=== PATIENT | male | born 1935 | race Hispanic/Latino ===

== ENCOUNTER 2021-02-02 11:24 | Emergency (ER) | payer BC, MEDICARE, OTHER ==
[~2021-02-02 11:24] MED LIST: LISI10TA24 PO; METO25TA6 PO
[2021-02-02] MEDS ORDERED: CYCLOBENZAPRINE HCL 10 MG TABLET ONE (12:39)
[2021-02-02] MEDS ORDERED: TETANUS IMMUNE GLOBULIN 250 UNIT SYRINGE IM ONE (12:40)
[2021-02-02] MEDS ORDERED: HYDROCODONE/ACETAMINOPHEN 10/325 MG TAB ONE (12:40)
[2021-02-02 12:45] LABS: BASOPHILS % (AUTO) 0.6 % (0.0-5.0); HEMATOCRIT 45.9 % (42-54); LYMPHOCYTES % (AUTO) 15.2 % (21.0-51.0); MEAN CORPUSCULAR HEMOGLOBIN 26.2 pg (27.0-33.0); MEAN CORPUSCULAR HGB CONC 32.7 g/dL (32.0-36.0); MEAN CORPUSCULAR VOLUME 80.2 fL (79-99); MONOCYTES % (AUTO) 8.1 % (3.0-13.0); NEUTROPHILS % (AUTO) 73.2 % (40.0-77.0); PLATELET COUNT (AUTO) 202 K/uL (130-400); RED BLOOD CELL COUNT(AUTO) 5.72 MIL/uL (4.50-6.20); RED CELL DISTRIBUTION WIDTH 14.2 % (11.0-15.5)
[2021-02-02 12:54] LABS: CREATININE 0.9 mg/dL (0.5-1.5); POTASSIUM 4.5 mmol/L (3.5-5.1)
[2021-02-02 12:55] LABS: INR 0.99 (0.85-1.15); PROTHROMBIN TIME 10.8 SEC (9.6-11.6)
[2021-02-02 12:57] LABS: PARTIAL THROMBOPLASTIN TIME 26.2 SEC (26.3-35.5)
[2021-02-02 12:58] LABS: ALBUMIN 3.3 g/dL (3.5-5.0); TOTAL PROTEIN, SERUM 6.4 g/dL (6.0-8.3)
[2021-02-02 13:04] LABS: B-TYPE NATRIURETIC PEPTIDE 70 pg/mL (0-100)
[2021-02-02 13:10] LABS: APPEARANCE,URINE CLEAR (CLEAR); BILIRUBIN,URINE NEGATIVE (NEGATIVE); COLOR,URINE YELLOW (YELLOW); GLUCOSE, URINE (UA) NEGATIVE (NEGATIVE); KETONES,URINE NEGATIVE (NEGATIVE); LEUKOCYTE ESTERASE ,URINE NEGATIVE (NEGATIVE); NITRATE,URINE NEGATIVE (NEGATIVE); OCCULT BLOOD,URINE NEGATIVE (NEGATIVE); PROTEIN,URINE NEGATIVE (NEGATIVE)
== END 2021-02-02 15:13 | disposition home or self-care (01) ==
LOC: EDH 11:24
DX: S30.0XXA Contusion of lower back and pelvis, initial encounter (principal); S50.01XA Contusion of right elbow, initial encounter; Z20.822 Contact with and (suspected) exposure to COVID-19; I10 Essential (primary) hypertension; W18.39XA Other fall on same level, initial encounter; Y93.01 Activity, walking, marching and hiking; Y92.89 Other specified places as the place of occurrence of the external cause; Y99.8 Other external cause status
CPT/HCPCS: 36415; 70450; 71045; 72125; 72131; 73070; 80053; 81003; 82550; 83880; 84484; 85025; 85610; 85730; 87426; 90471; 93005; 99284; J1670

== ENCOUNTER 2022-04-06 18:35 | Emergency (ER) | payer OTHER ==
[~2022-04-06] VITALS: Ht 167.6 cm; Wt 77.1 kg
[2022-04-06 18:38] VITALS: BP 146/64
[2022-04-06] MEDS ORDERED: CETI10TA57 PO (19:46)
[2022-04-06] MEDS ORDERED: HYDR28.32 TP (19:46)
[2022-04-07] MEDS ORDERED: CETIRIZINE HCL 5 MG TABLET PO SCH (09:00)
== END 2022-04-06 20:16 | disposition home or self-care (01) ==
LOC: EDH 18:35
DX: L23.9 Allergic contact dermatitis, unspecified cause (principal); I10 Essential (primary) hypertension; Z79.899 Other long term (current) drug therapy

== ENCOUNTER 2023-05-13 07:51 | Emergency (ER) | payer OTHER ==
[~2023-05-13] VITALS: Ht 170.2 cm; Wt 78.9 kg
[~2023-05-13 07:51] MED LIST changes: +CETI10TA57 PO; +HYDR28.32 TP
[2023-05-13 08:17] LABS: HEMATOCRIT 48.1 % (42-54); MEAN CORPUSCULAR HGB CONC 31.6 g/dL (32.0-36.0); MEAN CORPUSCULAR VOLUME 82.4 fL (79-99); RED BLOOD CELL COUNT(AUTO) 5.84 MIL/uL (4.50-6.20); RED CELL DISTRIBUTION WIDTH 14.6 % (11.0-15.5); WHITE BLOOD COUNT (AUTO) 6.9 K/uL (4.8-10.8)
[2023-05-13 08:30] LABS: SARS-CoV-2, RNA, NAAT NEGATIVE SARS CoV-2 (NEGATIVE)
[2023-05-13 08:34] LABS: INFLUENZA TYPE A Negative For Type A (NEGATIVE); INFLUENZA TYPE B Negative For Type B (NEGATIVE)
[2023-05-13 08:37] LABS: ALBUMIN 3.5 g/dL (3.5-5.0); BILIRUBIN,TOTAL 1.3 mg/dL (0.2-1.0); POTASSIUM 4.1 mmol/L (3.5-5.1); TOTAL PROTEIN, SERUM 6.8 g/dL (6.0-8.3)
[2023-05-13] MEDS ORDERED: BACITRACIN 1 EACH PACKET TP ONE (09:30)
[2023-05-13 12:09] VITALS: BP 122/64; PULSE 69; RESP 18; O2SAT 98
== END 2023-05-13 12:10 | disposition home or self-care (01) ==
LOC: EDH 07:51
DX: S41.111A Laceration without foreign body of right upper arm, initial encounter (principal); I10 Essential (primary) hypertension; Z20.822 Contact with and (suspected) exposure to COVID-19; W45.0XXA Nail entering through skin, initial encounter; Y93.89 Activity, other specified; Y92.89 Other specified places as the place of occurrence of the external cause; Y99.8 Other external cause status
CPT/HCPCS: 99284; 71045; 87635; 84484; 80053; 83880; 85027; 87804 ×2; 36415; 93005; C9803